=== PATIENT | female | born 1950 ===

== ENCOUNTER 2017-09-09 10:24 | Emergency (ER) | payer MEDICARE, OTHER ==
[2017-09-09 11:28] VITALS: RESP 18; BMI 30.2
[2017-09-09 12:13] VITALS: BP 130/87; PULSE 79; TEMP 98.9; O2SAT 98
--- NOTE | 2017-09-09 12:18 | RAD ---
PROCEDURE: Right Foot Radiographs. HISTORY: pain COMPARISON: None. FINDINGS: BONES: Normal. No fracture. JOINTS: Normal. SOFT TISSUES: Normal. OTHER FINDINGS: None. IMPRESSION: Normal right foot radiographs.
--- NOTE | 2017-09-09 12:46 | RAD ---
PROCEDURE: Right Ankle Radiographs. HISTORY: pain COMPARISON: None FINDINGS: BONES: Normal. No fracture. JOINTS: Normal. No osteoarthritis. Ankle mortise maintained. Talar dome intact SOFT TISSUES: Normal. OTHER FINDINGS: None. IMPRESSION: Normal right ankle radiographs.
--- NOTE | 2017-09-09 15:21 | ED PDOC ---
Arrival/HPI - General Chief Complaint: Lower Extremity Problem/Injury Time Seen by Provider: 09/09/17 11:03 Historian: Patient - History of Present Illness Narrative History of Present Illness (Text): 09/09/17 11:31 A 67 year old female, whose past medical history includes diabetes type 2, right knee replacement, and back pain, presents to the emergency department complaining of right foot pain for 3 weeks. Patient reports pain occurs at the back of right foot. States being unable to ambulate, nor is able to put on shoe due to pain. Patient believes pain may be associated with having twisted right foot 1-2 months ago, but is uncertain. Patient denies any falls, radiating leg pain, or any other complaints at this time. PMD: Dr. Marlene Hahn Time/Duration: < week (3 weeks) Symptom Onset: Sudden Symptom Course: Unchanged Past Medical History - Provider Review Nursing Documentation Reviewed: Yes - Infectious Disease Hx of Infectious Diseases: None - Tetanus Immunization Tetanus Immunization: Unknown - Cardiac Hx Cardiac Disorders: Yes - Pulmonary Hx Respiratory Disorders: No - Neurological Hx Neurological Disorder: No - HEENT Hx HEENT Disorder: Yes Hx Cataracts: Yes - Renal Hx Renal Disorder: No - Endocrine/Metabolic Hx Endocrine Disorders: Yes Hx Diabetes Mellitus Type 2: Yes - Hematological/Oncological Hx Blood Disorders: No - Integumentary Hx Dermatological Disorder: No - Musculoskeletal/Rheumatological Hx Musculoskeletal Disorders: Yes Hx Back Pain: Yes Hx Fractures: Yes (Hx of right knee replacement) - Gastrointestinal Hx Gastrointestinal Disorders: Yes Hx Diverticulitis: Yes Hx Gall Bladder Disease: Yes (Gallstones) - Genitourinary/Gynecological Hx Genitourinary Disorders: No - Psychiatric Hx Psychophysiologic Disorder: No Hx Substance Use: No - Surgical History Hx Appendectomy: Yes Hx Cholecystectomy: Yes Other/Comment: R TKR - Anesthesia Hx Anesthesia: Yes Hx Anesthesia Reactions: No Hx Malignant Hyperthermia: No - Suicidal Assessment Feels Threatened In Home Enviroment: No Family/Social History - Physician Review Nursing Documentation Reviewed: Yes Family/Social History: No Known Family HX Smoking Status: Never Smoked Hx Alcohol Use: Yes Hx Substance Use: No Allergies/Home Meds Allergies/Adverse Reactions: Allergies ranitidine HCl [From Zantac] Allergy (Verified 09/09/17 12:18) RASH Home Medications: Home Meds Medication Instructions Recorded Confirmed Actos 30 mg PO DAILY 12/30/13 09/09/17 Lipitor 40 mg PO DAILY 12/30/13 09/09/17 MetFORMIN 500 mg PO BID 12/30/13 09/09/17 Aspirin 81 mg PO DAILY 07/14/14 09/09/17 Sitagliptin Phosphate [Januvia] 50 mg PO DAILY 03/20/15 09/09/17 Review of Systems - Physician Review All systems were reviewed & negative as marked: Yes - Review of Systems Constitutional: absent: Other (patient denies any recent falls.) Musculoskeletal: Other (right foot pain; denies any radiating leg pain) Physical Exam Vital Signs Reviewed: Yes Vital Signs Temp Pulse Resp BP Pulse Ox 09/09/17 12:26 79 18 98 09/09/17 12:12 98.9 F 79 18 130/87 98 09/09/17 11:27 98.0 F 92 H 18 157/74 H 100 Temperature: Afebrile Blood Pressure: Hypertensive Pulse: Regular Respiratory Rate: Normal Appearance: Positive for: Well-Appearing Pain Distress: None Mental Status: Positive for: Alert and Oriented X 3 - Systems Exam Upper Extremity: Present: Normal Inspection. No: Cyanosis, Edema Lower Extremity: Present: Tenderness (mid-posterior right foot tenderness) Neurological: Present: GCS=15, CN II-XII Intact, Speech Normal Skin: Present: Warm, Dry, Normal Color. No: Rashes Psychiatric: Present: Alert, Oriented x 3, Normal Insight, Normal Concentration Medical Decision Making ED Course and Treatment: 09/09/17 11:34 Impression: 67 year old female with right foot pain,. Physical exam shows mid- posterior tenderness to right foot. Plan: -- Right Ankle X-Ray -- Right Foot X-Ray -- Toradol -- Reassess and disposition Progress Notes: 09/09/2017 12:16 Right Foot X-Ray IMPRESSION: Normal right foot radiographs. Dictator: Keenan Branch MD 09/09/2017 12:44 Right Ankle X-Ray IMPRESSION: Normal right ankle radiographs. Dictator: Keenan Branch MD 09/09/17 16:41 xr neg point tenderness on achilles. adivse outpt fu with ortho/podiatry. no calf, leg ttp/swelling. no clinical concern for dvt. - RAD Interpretation Radiology Orders: 09/09/17 11:34 ANKLE RIGHT 3 VIEWS ROUTINE [RAD] Stat FOOT RIGHT 3 VIEWS ROUTINE [RAD] Stat - Medication Orders Current Medication Orders: Discontinued Medications Ketorolac Tromethamine (Toradol) 30 mg IM STAT STA Stop: 09/09/17 11:35 Last Admin: 09/09/17 12:11 Dose: 30 mg MAR Pain Assessment Document 09/09/17 12:11 [email or web address] (Rec: 09/09/17 12:12 [email or web address] [id number] [employer]) Pain Reassessment Is this a pain reassessment? No Sleep Is patient sleeping during reassessment? No Presence of Pain Presence of Pain Yes Pain Scale Used Pain Scale Used Numeric Location Left, Right or Bilateral Right Pain Location Body Site Foot Description Description Constant Intensity of Pain at present 7 Pain Behavior Facial Grimacing Aggravating Factors Changing Position Alleviating Factors/Management Medication Techniques Alleviating Factors Medication IM Administration Charges Document 09/09/17 12:11 [email or web address] (Rec: 09/09/17 12:12 [email or web address] [id number]) Injection Site MAR Injection Site Right Deltoid Charges for Administration # of IM Administrations 1 - Scribe Statement The provider has reviewed the documentation as recorded by the Gorge Jo Provider Scribe Attestation: All medical record entries made by the Manjitibe were at my direction and personally dictated by me. I have reviewed the chart and agree that the record accurately reflects my personal performance of the history, physical exam, medical decision making, and the department course for this patient. I have also personally directed, reviewed, and agree with the discharge instructions and disposition. Disposition/Present on Arrival - Present on Arrival Any Indicators Present on Arrival: No History of DVT/PE: No History of Uncontrolled Diabetes: No Urinary Catheter: No History of Decub. Ulcer: No History Surgical Site Infection Following: None - Disposition Have Diagnosis and Disposition been Completed?: Yes Diagnosis: Foot pain Disposition: HOME/ ROUTINE Disposition Time: 04:00 Condition: STABLE Discharge Instructions (ExitCare): Achilles Tendinopathy Exercises, Foot Sprain (DC) Additional Instructions: follow up with specialist. return to er with worsening symptoms or concerns. Prescriptions: Naproxen 500 mg PO BID PRN #14 tablet PRN Reason: Pain, Mild (1-3) Referrals: Juma Godinez DPM [Staff Provider] - Follow up with primary Jose Wing DO [Staff Provider] - Follow up with primary Forms: [place]arr[place] (Serbian)
== END 2017-09-09 12:27 | disposition home or self-care (01) ==
LOC: ED 10:24
DX: M79.671 Pain in right foot (principal)
CPT/HCPCS: 73610; 73630; 96372; 99282; J1885

== ENCOUNTER 2018-07-03 08:41 | Outpatient (CLI) | payer MEDICARE, OTHER | END 2018-07-03 08:42 | disposition home or self-care (01) | LOC: RAD 08:41 ==

== ENCOUNTER 2018-07-08 11:04 | Observation (INO) | payer MEDICARE, OTHER ==
[2018-07-08 11:11] VITALS: BMI 31.2
--- NOTE | 2018-07-08 11:26 | ED PDOC ---
Arrival/HPI - General Chief Complaint: Chest Pain Time Seen by Provider: 07/08/18 11:11 Historian: Patient - History of Present Illness Narrative History of Present Illness (Text): 07/08/18 11:24 68 year old female, with past medical history of diabetes and cholecystectomy, presents to the ED for evaluation of right sided chest pain radiating to left arm since 1 hour prior to arrival. Patient informs multiple episodes in the past for last 2 months, with last episode 2 weeks ago. Patient describes associated epigastric discomfort described as "needle stick", similar to episodes experienced previously. Patient denies any taking any medication for pain. Patient denies any other somatic complaints. Patient denies any fevers, chills, headache, dizziness, shortness of breath, dyspnea on exertion, cough, nausea, vomiting, diarrhea, back pain, neck pain, or any other complaints. Patient denies any diet intake today. Patient denies any recent changes in medications or diet. Patient denies any drug use. PMD: Dr. Kauffman Time/Duration: 4-6 hours Symptom Onset: Gradual Symptom Course: Unchanged Activities at Onset: Light Context: Home Past Medical History - Provider Review Nursing Documentation Reviewed: Yes - Infectious Disease Hx of Infectious Diseases: None - Tetanus Immunization Tetanus Immunization: Unknown - Cardiac Hx Cardiac Disorders: Yes - Pulmonary Hx Respiratory Disorders: No - Neurological Hx Neurological Disorder: No - HEENT Hx HEENT Disorder: Yes Hx Cataracts: Yes - Renal Hx Renal Disorder: No - Endocrine/Metabolic Hx Endocrine Disorders: Yes Hx Diabetes Mellitus Type 2: Yes - Hematological/Oncological Hx Blood Disorders: No - Integumentary Hx Dermatological Disorder: No - Musculoskeletal/Rheumatological Hx Fractures: Yes (Hx of right knee replacement) - Gastrointestinal Hx Diverticulitis: Yes Hx Gall Bladder Disease: Yes (Gallstones) - Genitourinary/Gynecological Hx Genitourinary Disorders: No - Psychiatric Hx Psychophysiologic Disorder: No Hx Substance Use: No - Surgical History Hx Appendectomy: Yes Hx Cholecystectomy: Yes - Anesthesia Hx Anesthesia: Yes Hx Anesthesia Reactions: No Hx Malignant Hyperthermia: No - Suicidal Assessment Feels Threatened In Home Enviroment: No Family/Social History - Physician Review Nursing Documentation Reviewed: Yes Family/Social History: Unknown Family HX Smoking Status: Former Smoker Hx Alcohol Use: Yes Hx Substance Use: No Allergies/Home Meds Allergies/Adverse Reactions: Allergies ranitidine HCl [From Zantac] Allergy (Verified 07/08/18 11:21) RASH Home Medications: Home Meds Medication Instructions Recorded Confirmed Lipitor 40 mg PO DAILY 12/30/13 07/08/18 MetFORMIN 750 mg PO BID 12/30/13 07/08/18 Aspirin 81 mg PO DAILY 07/14/14 07/08/18 Sitagliptin Phosphate [Januvia] 30 mg PO DAILY 03/20/15 07/08/18 Review of Systems - Physician Review All systems were reviewed & negative as marked: Yes - Review of Systems Constitutional: absent: Fatigue, Weight Change, Fevers Eyes: absent: Vision Changes, Photophobia ENT: absent: Hearing Changes, Tinnitus Respiratory: absent: SOB, Cough Cardiovascular: Chest Pain Gastrointestinal: Abdominal Pain. absent: Diarrhea, Nausea, Vomiting Genitourinary Female: absent: Dysuria, Frequency, Urine Output Changes Musculoskeletal: absent: Back Pain, Neck Pain Skin: absent: Rash Neurological: absent: Headache, Dizziness Endocrine: absent: Diaphoresis Psychiatric: absent: Anxiety Physical Exam Vital Signs Reviewed: Yes Vital Signs Temp Pulse Resp BP Pulse Ox 07/08/18 11:17 97.0 F L 76 19 132/87 96 07/08/18 11:10 97.0 F L 80 16 132/87 96 Temperature: Afebrile Blood Pressure: Normal Pulse: Regular Respiratory Rate: Normal Appearance: Positive for: Well-Appearing, Non-Toxic, Comfortable Pain Distress: None Mental Status: Positive for: Alert and Oriented X 3 - Systems Exam Head: Present: Atraumatic, Normocephalic Pupils: Present: PERRL Extroacular Muscles: Present: EOMI Conjunctiva: Present: Normal Mouth: Present: Moist Mucous Membranes Neck: Present: Normal Range of Motion Respiratory/Chest: Present: Clear to Auscultation, Good Air Exchange. No: Respiratory Distress, Accessory Muscle Use Cardiovascular: Present: Regular Rate and Rhythm, Normal S1, S2. No: Murmurs Abdomen: Present: Tenderness (Epigastric tenderness). No: Distention, Peritoneal Signs Back: Present: Normal Inspection Upper Extremity: Present: Normal Inspection. No: Cyanosis, Edema Lower Extremity: Present: Normal Inspection. No: Edema Neurological: Present: GCS=15, CN II-XII Intact, Speech Normal Skin: Present: Warm, Dry, Normal Color. No: Rashes Psychiatric: Present: Alert, Oriented x 3, Normal Insight, Normal Concentration Medical Decision Making ED Course and Treatment: 07/08/18 11:10 Impression: 68 year old female presents to the ED for evaluation of right sided chest pain radiating to left arm. No pleuritic chest pain. Given DM2, HLD, Female will likely require repeat trops. Pt also notes epigastric pain. No RUQ pain or any other pain in the body. No trauma or new meds or fall. No headache, nausea, fever, chills or night sweats. No vomiting Differential Diagnosis included but are not limited to: -- Chest pain r/o ACS -- Gastritis Plan: -- EKG -- Labs -- Chest X-ray -- Reassess and disposition Prior Visits: Notes and results from previous visits were reviewed. Progress Notes: 07/08/18 11:00 EKG reviewed, shows NSR @82 bpm, No STEMI. 07/08/18 12:30 CXR, labs unremarkable Pts PMD Dr. 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 Nichols: to admit to his service. Pt in NAD. 07/08/18 13:03 RUQ pain endorsed by pt to Dr. nichols: US ordered. - RAD Interpretation Radiology Orders: 07/08/18 11:22 CHEST TWO VIEWS (PA/LAT) [RAD] Stat Dock Superintendent: Radiologist - EKG Interpretation Interpreted by ED Physician: Yes Type: 12 lead EKG - Scribe Statement The provider has reviewed the documentation as recorded by the Scribe Saurav Barragan. All medical record entries made by the Scribe were at my direction and personally dictated by me. I have reviewed the chart and agree that the record accurately reflects my personal performance of the history, physical exam, medical decision making, and the department course for this patient. I have also personally directed, reviewed, and agree with the discharge instructions and disposition. Disposition/Present on Arrival - Present on Arrival Any Indicators Present on Arrival: No History of DVT/PE: No History of Uncontrolled Diabetes: No Urinary Catheter: No History of Decub. Ulcer: No History Surgical Site Infection Following: None - Disposition Have Diagnosis and Disposition been Completed?: Yes Diagnosis: Chest pain Disposition Time: 12:42 Patient Problems: Current Active Problems Problem Status Onset Chest pain Acute Condition: STABLE
[2018-07-08 12:01] LABS: ALB/GLOB RATIO 1.4 (1.1-1.8); ALBUMIN 4.7 g/dL (3.0-4.8); ALT/SGPT 15 U/L (7-56); AST/SGOT 24 U/L (14-36); BLOOD UREA NITROGEN 16 mg/dL (7-21); CALCIUM 9.4 mg/dL (8.4-10.5); GFR NON-AFRICAN AMERICAN > 60; LIPASE 106 U/L (23-300)
[2018-07-08 12:13] LABS: TROPONIN I < 0.01 ng/mL
--- NOTE | 2018-07-08 12:28 | RAD ---
Date of service: 07/08/2018 HISTORY: cp COMPARISON: No prior. TECHNIQUE: Chest PA and lateral FINDINGS: LUNGS: No active pulmonary disease. PLEURA: No significant pleural effusion identified. No pneumothorax apparent. CARDIOVASCULAR: Aortic calcification Normal cardiac size. No pulmonary vascular congestion. OSSEOUS STRUCTURES: No significant abnormalities. VISUALIZED UPPER ABDOMEN: Normal. OTHER FINDINGS: None. IMPRESSION: No active disease.
[2018-07-08 12:57] LABS: BASO # 0.02 K/mm3 (0.0-2.0); BASO % 0.4 % (0.0-3.0); EOS # 0.1 (0.0-0.7); EOS % 2.2 % (1.5-5.0); HEMOGLOBIN 16.3 g/dL (12.0-16.0); LYMPH # 1.5 (1.2-3.4); LYMPH % 27.5 % (22.0-35.0); MEAN CELL VOLUME 91.7 fl (80.0-105.0); MEAN CORPUSCULAR HEMOGLOBIN 31.3 pg (25.0-35.0); MEAN CORPUSCULAR HGB CONC 34.2 g/dl (31.0-37.0); MEAN PLATELET VOLUME 9.6 fl (7.0-11.0); MONO # 0.4 (0.1-0.6); MONO % 6.5 % (1.0-6.0); RBC 5.2 10^6/uL (3.5-6.1); RED CELL DISTRIBUTION WIDTH 13.1 % (11.5-14.5); WHITE BLOOD COUNT 5.5 10^3/uL (4.5-11.0)
[2018-07-08] MEDS ORDERED: Iohexol 240 (50 ml) ONE (13:53)
--- NOTE | 2018-07-08 15:15 | US ---
Date of service: 07/08/2018 HISTORY: ruq pain COMPARISON: None. TECHNIQUE: Sonographic evaluation of the right upper quadrant of the abdomen. FINDINGS: LIVER: Measures 13.4 cm in length. Hepatopedal blood flow. Fatty infiltration manifest ultrasonographically as increased echogenicity of the liver parenchyma. No mass. No intrahepatic bile duct dilatation. GALLBLADDER: Status post cholecystectomy. No abnormality is seen in the gallbladder fossa. COMMON BILE DUCT: Measures 5.2 mm. No stones. No dilatation. PANCREAS: Unremarkable as visualized. No mass. No ductal dilatation. RIGHT KIDNEY: Measures 6.3 x 9.5 cm in length. Normal echogenicity. No calculus, mass, or hydronephrosis. AORTA: No aneurysmal dilatation. IVC: Unremarkable. OTHER FINDINGS: None . IMPRESSION: No significant or acute findings to account for/ related to the clinical presentation.
--- NOTE | 2018-07-08 17:49 | CT ---
Date of service: 07/08/2018 PROCEDURE: CT Abdomen and Pelvis without intravenous contrast HISTORY: abdominal pain COMPARISON: 02/22/2016 TECHNIQUE: Without contrast.. Contrast dose: 0 Radiation dose: Total exam DLP = 685.97 mGy-cm. This CT exam was performed using one or more of the following dose reduction techniques: Automated exposure control, adjustment of the mA and/or kV according to patient size, and/or use of iterative reconstruction technique. FINDINGS: LOWER THORAX: Unremarkable. LIVER: Unremarkable. No gross lesion or ductal dilatation. GALLBLADDER AND BILE DUCTS: Status post cholecystectomy PANCREAS: Unremarkable. No gross lesion or ductal dilatation. SPLEEN: Unremarkable. ADRENALS: Unremarkable. No mass. KIDNEYS AND URETERS: Unremarkable. No hydronephrosis. No solid mass. VASCULATURE: Unremarkable. No aortic aneurysm. There is atherosclerotic calcification of the abdominal aorta BOWEL: Unremarkable. No obstruction. No gross mural thickening. APPENDIX: Unremarkable. Normal appendix. PERITONEUM: Unremarkable. No free fluid. No free air. LYMPH NODES: Unremarkable. No enlarged lymph nodes. BLADDER: Unremarkable. REPRODUCTIVE: Postmenopausal uterus BONES: No acute fracture. OTHER FINDINGS: None. IMPRESSION: No acute abnormality.
[2018-07-08] MEDS: Insulin Reg-LOW-Coverage SC SCH ×2 (18:13→21:59)
--- NOTE | 2018-07-08 22:07 | CP.PCM.CON ---
<Pop Hahn - Last Filed: 07/08/18 22:26> History of Present Illness - History of Present Illness History of Present Illness: PGY5 GI Consult Sonya Finn is a 68 year old female, with history of diabetes and cholecystectomy, presents to the ED for evaluation of right sided chest pain radiating to left arm. Patient informs multiple episodes in the past for last 2 months, with last episode 2 weeks ago. Pt states that the location is epigastrum radiating to the RUQ. Denies any nausea or vomiting. Pt states that she had a BM yesterday but notes having a hx of chronic constipation. 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 ROS: 12 point ROS conducted, neg other than above Past Patient History - Infectious Disease Hx of Infectious Diseases: None - Tetanus Immunizations Tetanus Immunization: Unknown - Past Medical History & Family History Past Medical History?: Yes - Past Social History Smoking Status: Former Smoker - CARDIAC Hx Cardiac Disorders: Yes - PULMONARY Hx Respiratory Disorders: No - NEUROLOGICAL Hx Neurological Disorder: No - HEENT Hx HEENT Problems: Yes Hx Cataracts: Yes - RENAL Hx Chronic Kidney Disease: No - ENDOCRINE/METABOLIC Hx Endocrine Disorders: Yes Hx Diabetes Mellitus Type 2: Yes - HEMATOLOGICAL/ONCOLOGICAL Hx Blood Disorders: No - INTEGUMENTARY Hx Dermatological Problems: No - MUSCULOSKELETAL/RHEUMATOLOGICAL Hx Fractures: Yes (Hx of right knee replacement) - GASTROINTESTINAL Hx Diverticulitis: Yes Hx Gall Bladder Disease: Yes (Gallstones) - GENITOURINARY/GYNECOLOGICAL Hx Genitourinary Disorders: No - PSYCHIATRIC Hx Psychophysiologic Disorder: No Hx Substance Use: No - SURGICAL HISTORY Hx Appendectomy: Yes Hx Cholecystectomy: Yes - ANESTHESIA Hx Anesthesia: Yes Hx Anesthesia Reactions: No Hx Malignant Hyperthermia: No Meds Allergies/Adverse Reactions: Allergies Allergy/AdvReac Type Severity Reaction Status Date / Time ranitidine HCl [From Zantac] Allergy RASH Verified 07/08/18 23:03 - Medications Medications: Current Medications Amlodipine Besylate (Norvasc) 5 mg PO DAILY [facility] Atorvastatin Calcium (Lipitor) 40 mg PO DIN [facility] Last Admin: 07/08/18 17:29 Dose: 40 mg Clonidine HCl (Catapres) 0.1 mg PO Q6 PRN PRN Reason: hypertension Last Admin: 07/08/18 18:18 Dose: 0.1 mg Insulin Human Regular (Humulin R Low) 0 units SC ACHS [facility]; Protocol Last Admin: 07/08/18 21:59 Dose: Not Given Metformin HCl (Glucophage) 750 mg PO BID [facility] Last Admin: 07/08/18 18:12 Dose: Not Given Pantoprazole Sodium (Protonix Inj) 40 mg IVP DAILY [facility] Last Admin: 07/08/18 17:17 Dose: 40 mg Sitagliptin Phosphate (Januvia) 50 mg PO DAILY [facility] Last Admin: 07/08/18 17:29 Dose: 50 mg Physical Exam - Constitutional Appears: Well, No Acute Distress - Head Exam Head Exam: ATRAUMATIC, NORMOCEPHALIC - Eye Exam Eye Exam: Normal appearance Pupil Exam: NORMAL ACCOMODATION - ENT Exam ENT Exam: Mucous Membranes Moist, Normal Exam - Neck Exam Neck exam: Positive for: Normal Inspection - Respiratory Exam Respiratory Exam: Clear to Auscultation Bilateral, NORMAL BREATHING PATTERN. absent: Rales, Rhonchi, Wheezes, Respiratory Distress - Cardiovascular Exam Cardiovascular Exam: REGULAR RHYTHM, +S1, +S2 - GI/Abdominal Exam GI & Abdominal Exam: Normal Bowel Sounds, Soft, Tenderness (RUQ). absent: Diminished Bowel Sounds, Distended, Firm, Guarding, Hernia, Organomegaly - Extremities Exam Extremities exam: Negative for: joint swelling, pedal edema - Neurological Exam Neurological exam: Alert, Oriented x3 - Psychiatric Exam Psychiatric exam: Normal Affect, Normal Mood - Skin Skin Exam: Dry, Intact, Normal Color, Warm Results - Vital Signs Recent Vital Signs: Last Vital Signs Temp 98 F 07/08/18 17:40 Pulse 73 07/08/18 18:18 Resp 18 07/08/18 17:40 BP 141/115 H 07/08/18 18:18 Pulse Ox 98 07/08/18 17:40 - Labs Result Diagrams: 07/08/18 11:50 07/08/18 11:45 Labs: Laboratory Results - last 24 hr 07/08/18 07/08/18 07/08/18 11:45 11:50 15:49 WBC 5.5 RBC 5.20 Hgb 16.3 H Hct 47.7 MCV 91.7 MCH 31.3 MCHC 34.2 RDW 13.1 Plt Count 231 MPV 9.6 Neut % (Auto) 63.4 Lymph % (Auto) 27.5 Hutchinson % (Auto) 6.5 H Eos % (Auto) 2.2 Baso % (Auto) 0.4 Lymph # (Auto) 1.5 Hutchinson # (Auto) 0.4 Eos # (Auto) 0.1 Baso # (Auto) 0.02 Absolute Neuts (auto) 3.49 Sodium 136 Potassium 4.4 Chloride 103 Carbon Dioxide 22 Anion Gap 16 BUN 16 Creatinine 0.5 L Est GFR ( Amer) > 60 Est GFR (Non-Af Amer) > 60 POC Glucose (mg/dL) 148 H Random Glucose 181 H Calcium 9.4 Total Bilirubin 0.6 AST 24 ALT 15 Alkaline Phosphatase 100 Troponin I < 0.01 Total Protein 8.0 Albumin 4.7 Globulin 3.3 Albumin/Globulin Ratio 1.4 Lipase 106 07/08/18 21:56 WBC RBC Hgb Hct MCV MCH MCHC RDW Plt Count MPV Neut % (Auto) Lymph % (Auto) Hutchinson % (Auto) Eos % (Auto) Baso % (Auto) Lymph # (Auto) Hutchinson # (Auto) Eos # (Auto) Baso # (Auto) Absolute Neuts (auto) Sodium Potassium Chloride Carbon Dioxide Anion Gap BUN Creatinine Est GFR ( Amer) Est GFR (Non-Af Amer) POC Glucose (mg/dL) 185 H Random Glucose Calcium Total Bilirubin AST ALT Alkaline Phosphatase Troponin I Total Protein Albumin Globulin Albumin/Globulin Ratio Lipase Assessment & Plan - Assessment and Plan (Free Text) Assessment: Sonya Finn is a 68 year old female, with history of diabetes and cholecystectomy, presents to the ED for evaluation of right sided chest pain radiating to left arm. CT abd : sig stool retention; Abd U/S no sig finding Abd pain etiology unclear DDx PUD, gastritis, constipation Acute on chronic constipation GERD hx of cholecysectomy Plan: -start on miralax BID and senna bedtime -will schedule for EGD tomorrow, NPO after midnight -clears for now -ppi protonic 40mg daily -pain managment as per primary team -first trop neg, will need additional x2 q6 hrs D/W Roula <Roula,Kovil V - Last Filed: 07/08/18 23:50> Meds - Medications Medications: Current Medications Amlodipine Besylate (Norvasc) 5 mg PO DAILY [facility] Atorvastatin Calcium (Lipitor) 40 mg PO DIN [facility] Last Admin: 07/08/18 17:29 Dose: 40 mg Clonidine HCl (Catapres) 0.1 mg PO Q6 PRN PRN Reason: hypertension Last Admin: 07/08/18 18:18 Dose: 0.1 mg Insulin Human Regular (Humulin R Low) 0 units SC [facility]; Protocol Last Admin: 07/08/18 21:59 Dose: Not Given Metformin HCl (Glucophage) 750 mg PO BID [facility] Last Admin: 07/08/18 18:12 Dose: Not Given Pantoprazole Sodium (Protonix Inj) 40 mg IVP DAILY [facility] Last Admin: 07/08/18 17:17 Dose: 40 mg Sitagliptin Phosphate (Januvia) 50 mg PO DAILY [facility] Last Admin: 07/08/18 17:29 Dose: 50 mg Results - Vital Signs Recent Vital Signs: Last Vital Signs Temp 98 F 07/08/18 17:40 Pulse 68 07/08/18 22:00 Resp 18 07/08/18 23:04 BP 141/115 H 07/08/18 18:18 Pulse Ox 98 07/08/18 17:40 - Labs Result Diagrams: 07/08/18 11:50 07/08/18 11:45 Labs: Laboratory Results - last 24 hr 07/08/18 07/08/18 07/08/18 11:45 11:50 15:49 WBC 5.5 RBC 5.20 Hgb 16.3 H Hct 47.7 MCV 91.7 MCH 31.3 MCHC 34.2 RDW 13.1 Plt Count 231 MPV 9.6 Neut % (Auto) 63.4 Lymph % (Auto) 27.5 Hutchinson % (Auto) 6.5 H Eos % (Auto) 2.2 Baso % (Auto) 0.4 Lymph # (Auto) 1.5 Hutchinson # (Auto) 0.4 Eos # (Auto) 0.1 Baso # (Auto) 0.02 Absolute Neuts (auto) 3.49 Sodium 136 Potassium 4.4 Chloride 103 Carbon Dioxide 22 Anion Gap 16 BUN 16 Creatinine 0.5 L Est GFR ( Amer) > 60 Est GFR (Non-Af Amer) > 60 POC Glucose (mg/dL) 148 H Random Glucose 181 H Calcium 9.4 Total Bilirubin 0.6 AST 24 ALT 15 Alkaline Phosphatase 100 Troponin I < 0.01 Total Protein 8.0 Albumin 4.7 Globulin 3.3 Albumin/Globulin Ratio 1.4 Lipase 106 07/08/18 07/08/18 21:56 22:52 WBC RBC Hgb Hct MCV MCH MCHC RDW Plt Count MPV Neut % (Auto) Lymph % (Auto) Hutchinson % (Auto) Eos % (Auto) Baso % (Auto) Lymph # (Auto) Hutchinson # (Auto) Eos # (Auto) Baso # (Auto) Absolute Neuts (auto) Sodium Potassium Chloride Carbon Dioxide Anion Gap BUN Creatinine Est GFR ( Amer) Est GFR (Non-Af Amer) POC Glucose (mg/dL) 185 H Random Glucose Calcium Total Bilirubin AST ALT Alkaline Phosphatase Troponin I < 0.01 Total Protein Albumin Globulin Albumin/Globulin Ratio Lipase Attending/Attestation - Attestation I have personally seen and examined this patient.: Yes I have fully participated in the care of the patient.: Yes I have reviewed all pertinent clinical information: Yes Notes (Text): This is an addendum to GI consult report dictated by the GI Fellow.The patient was seen and examined earlier. Medical records, lab studies, imagings were reviewed. Last 24 hours events reviewed. Agreed with the above treatment plan as outlined in GI Fellow 's notes with the addition of the following 07/08/18 23:50
--- NOTE | 2018-07-08 23:10 | CARD ---
APPROVED REPORT Date of service: 07/08/2018 EKG Measurement Heart [id number] <Conclusion> Normal sinus rhythm NDSTT abnormalities Borderline ECG
--- NOTE | 2018-07-08 23:19 | CARD ---
APPROVED REPORT Date of service: 07/08/2018 EKG Measurement Heart [id number] <Conclusion> Normal sinus rhythm Normal ECG
[2018-07-08] MEDS ORDERED: Pneumococcal 23-Valent Vaccine IM ONE (23:25)
[2018-07-08] MEDS ORDERED: Influenza Vaccine 60 mcg/0.5 mL SYR (4YR UP) IM ONE (23:25)
[2018-07-09 08:22] VITALS: RESP 20
[2018-07-09] MEDS ORDERED: Propofol 10 mg/ml Inj (20 ML) ONE (08:27)
[2018-07-09] MEDS ORDERED: Sodium Chloride 0.9% 1,000 ML IV SCH (08:45)
[2018-07-09 08:48] VITALS: TEMP 98
[2018-07-09 08:56] VITALS: O2SAT 99
[2018-07-09] MEDS: Insulin Reg-LOW-Coverage SC SCH ×2 (09:42→12:45)
[2018-07-09 09:49] VITALS: BP 104/50; PULSE 75
--- NOTE | 2018-07-09 23:37 | CON ---
DATE: 07/09/2018 CARDIOLOGY CONSULTATION HISTORY OF PRESENT ILLNESS: The patient is a 68-year-old woman who presents with right-sided chest discomfort. The patient is status post cholecystectomy in the past. She suffers from hyperlipidemia as well as diabetes mellitus. No previous hypertension noted. No previous cardiac disease noted. She denies angina, denies shortness of breath. SOCIAL HISTORY: She denies smoking. REVIEW OF SYSTEMS: A 14-point review of systems is reviewed in detail. No cardiac symptoms are noted. PHYSICAL EXAMINATION: VITAL SIGNS: Blood pressure is 104/50 with heart rate in the 70s. NECK: Negative JVD. LUNGS: Without rales. HEART: S1, S2. EXTREMITIES: Without edema. EKG shows normal sinus rhythm with no acute changes. LABORATORY DATA: Hemoglobin is 16. Troponins are negative x3. The glucose is 185. IMPRESSION: 1. Atypical chest pain. 2. History of gastritis on endoscopy. 3. Diabetes mellitus. 4. Hypercholesterolemia. 5. History of cholecystectomy. Given these findings, the patient's symptoms are not from cardiac issues. No evidence for acute coronary syndrome. The patient can be discharged from a cardiac perspective. Given her cardiac risk factors, I have discussed with the patient about the need for a stress test. The patient is agreeable. We will arrange for it as an outpatient next week. Keenan Mota MD
== END 2018-07-09 15:11 | disposition home or self-care (01) ==
LOC: ED 11:04 → ERH 12:42 → 3RNO 17:34
PROVIDERS: ADMIT Internal Medicine; ATTEND Internal Medicine
DX: R07.89 Other chest pain (principal); K29.70 Gastritis, unspecified, without bleeding; E11.9 Type 2 diabetes mellitus without complications; E78.00 Pure hypercholesterolemia, unspecified; K59.09 Other constipation; E78.5 Hyperlipidemia, unspecified; K21.9 Gastro-esophageal reflux disease without esophagitis; Z90.49 Acquired absence of other specified parts of digestive tract; Z96.653 Presence of artificial knee joint, bilateral; Z87.891 Personal history of nicotine dependence
CPT/HCPCS: 36415; 43239; 71046; 74176; 76705; 80053; 82948; 83690; 84484; 85025; 88305; 88312; 88342; 93005; 96374; 96376; 99285; C9113; G0378; J2001; J2704; J7030; J7040; Q9966

== ENCOUNTER 2018-07-14 07:10 | Outpatient (CLI) | payer MEDICARE, OTHER | END 2018-07-14 07:11 | disposition home or self-care (01) | LOC: CARDIO 07:10 | DX: R07.9 Chest pain, unspecified (principal); E11.9 Type 2 diabetes mellitus without complications; E78.00 Pure hypercholesterolemia, unspecified; I27.20 Pulmonary hypertension, unspecified ==